=== PATIENT | male | born 1960 | race Caucasian/White ===

== ENCOUNTER 2022-02-24 14:53 | Emergency (ER) | payer OTHER ==
[2022-02-24 15:02] VITALS: BP 131/79; PULSE 90; TEMP 98.6; BMI 26.2
[2022-02-24] MEDS ORDERED: DIPHTH,PERTUSS(ACELL),TET 0.5 ML DISP.SYRIN IM ONE ×2 (15:09→15:31)
[2022-02-24] MEDS ORDERED: SODIUM CHLORIDE 0.9% 500 ML INFUS.BAG IV ONE (15:45)
[2022-02-24 16:22] LABS: BASO % 0.6 % (0-2.0); EOS % 3.1 % (0-4.5); HEMATOCRIT 40.6 % (35.4-49); HEMOGLOBIN 13.6 GM/dL (11.7-16.9); MCH 28.6 pg (25.7-33.7); MCHC 33.6 g/dl (32.0-35.9); MEAN CELL VOLUME 85.2 fl (80-96); MEAN PLT VOLUME 7.9 fl (7.5-11.1); MONO % 12.6 % (3.8-10.2); NEUT % 60.7 % (42.8-82.8); PLATELET COUNT 222 10^3/uL (134-434); RBC 4.77 M/mm3 (4.00-5.60); RDW 14.2 % (11.9-15.9); WHITE BLOOD COUNT 6.2 K/mm3 (4.0-10.0)
[2022-02-24 16:46] LABS: CALCIUM 9.3 mg/dL (8.5-10.1)
[2022-02-24 16:47] LABS: ALBUMIN 3.8 g/dl (3.4-5.0); BLOOD UREA NITROGEN 15.7 mg/dL (7-18)
[2022-02-24 16:50] LABS: CREATININE 0.8 mg/dL (0.55-1.3)
[2022-02-24 16:51] LABS: BILIRUBIN,TOTAL 0.3 mg/dL (0.2-1); TOT PROT 7.3 g/dl (6.4-8.2)
== END 2022-02-24 18:10 | disposition home or self-care (01) ==
LOC: JER 14:53
PROC: 3E0234Z Introduction of Serum, Toxoid and Vaccine into Muscle, Percutaneous Approach (ICD-10-PCS; principal; 2022-02-24)
DX: R55 Syncope and collapse (principal)
CPT/HCPCS: 36415; 70450-TC; 72125-TC; 80053; 84484; 85025; 90715; 93005; 93010; 99285-25